=== PATIENT | male | born 1970 | race Two or more races ===

== ENCOUNTER 2018-10-10 10:21 | Emergency (ER) | payer SELFPAY ==
[~2018-10-10] VITALS: Ht 175.3 cm; Wt 53.5 kg
[2018-10-10] MEDS ORDERED: IV NORMAL SALINE 1000ML BAG 1,000 ML IV SCH (11:35)
--- NOTE | 2018-10-10 11:45 | PHYS DOC ---
Past Medical History Past Medical History: Cancer Past Surgical History: Other Additional Past Surgical Histo: GASTRIC CA Smoking: Cigarettes (The patient is a nonsmoker.) Alcohol Use: None Drug Use: None Adult General Chief Complaint Chief Complaint: ABDOMINAL PAIN HPI HPI Patient is a pleasant 48-year-old male, who presents to the emergency department for evaluation. He has a past history of gastric cancer, with the surgery for this about 10 years ago. He states he has dealt with chronic abdominal pain, and at some point became addicted to pain pills, for which she currently takes Buprenorphine. He states that although he has had chronic abdominal pain, over the past several days he has had a worsening of his abdominal pain, mostly in the upper abdomen and on the right side. He has not had any vomiting, or change in his bowel habits, which have been loose for years. He has not had any black or bloody stools, fevers, chills, chest pain, dizziness or lightheadedness. There are no alleviating or exacerbating factors to his symptoms. He does not want to take any further pain medication at this time, given his past history. Review of Systems Review of Systems Constitutional: Denies fever or chills. The patient admits to about a 5 pound weight loss over the past 2 months. [] Eyes: Denies change in visual acuity, redness, or eye pain [] HENT: Denies nasal congestion or sore throat [] Respiratory: Denies cough or shortness of breath [] Cardiovascular: The patient denies any shortness of breath, chest pain, p alpitations, or orthopnea[] GI: No additional information not addressed in HPI [] : Denies dysuria or hematuria [] Musculoskeletal: Denies back pain or joint pain [] Integument: Denies rash or skin lesions [] Neurologic: Denies headache, focal weakness or sensory changes [] Endocrine: Denies polyuria or polydipsia [] All other systems were reviewed and found to be within normal limits, except as documented in this note. Current Medications Current Medications Current Medications Medications (Trade) Dose Ordered Sig/Sheila Start Time Stop Time Status Last Admin Dose Admin Info (CONTRAST GIVEN -- Rx MONITORING) 1 each PRN DAILY PRN 10/10/18 12:00 10/12/18 11:59 Iohexol (Omnipaque 240 Mg/ml) 30 ml 1X ONCE 10/10/18 12:30 10/10/18 12:31 DC 10/10/18 12:53 30 ML Iohexol (Omnipaque 300 Mg/ml) 75 ml 1X ONCE 10/10/18 12:30 10/10/18 12:31 DC 10/10/18 12:53 75 ML Sodium Chloride 1,000 ml @ 1,000 mls/hr Q1H 10/10/18 11:35 10/10/18 12:34 DC 10/10/18 12:02 1,000 MLS/HR Allergies Allergies Allergies Coded Allergies Type Severity Reaction Last Updated Verified No Known Drug Allergies 10/10/18 No Physical Exam Physical Exam PHYSICAL EXAM: CONSTITUTIONAL: Well developed, well nourished HEAD: normocephalic, atraumatic EENT: PERRL, EOMI. Conjunctivae normal color, sclerae non-icteric; moist mucous membranes. NECK: Supple, non-tender; no meningismus. LUNGS: Lungs CTA, breathing even and unlabored. Normal air movement. HEART: Regular rate and rhythm, no murmur CHEST: No deformity; non-tender ABDOMEN: The abdomen is soft, bowel sounds are present, the abdomen is nondist ended, there is diffuse tenderness to palpation to the entire abdomen, most prominent in the upper abdomen, without focal tenderness, rebound or guarding, no palpable masses or bruits. EXTREM: Normal ROM; no deformity, no calf tenderness. Normal pulses palpable in all extremities. There is no pedal edema. SKIN: No rash; no diaphoresis NEURO: Alert; normal speech and cognition; CN's grossly intact; strength grossly intact without focal deficit. BACK: No CVA TTP. Current Patient Data Vital Signs Vital Signs Date Time Temp Pulse Resp B/P (MAP) Pulse Ox O2 Delivery O2 Flow Rate FiO2 10/10/18 10:21 98.7 78 12 133/82 (99) 98 Room Air 98.7 Lab Values Laboratory Tests Test 10/10/18 11:25 White Blood Count 5.8 x10^3/uL (4.0-11.0) Red Blood Count 4.19 x10^6/uL (4.30-5.70) L Hemoglobin 13.4 g/dL (13.0-17.5) Hematocrit 40.0 % (39.0-53.0) Mean Corpuscular Volume 95 fL (79-100) Mean Corpuscular Hemoglobin 32 pg (25-35) Mean Corpuscular Hemoglobin Concent 33 g/dL (31-37) Red Cell Distribution Width 17.6 % (11.5-14.5) H Platelet Count 307 x10^3/uL (140-400) Neutrophils (%) (Auto) 41 % (31-73) Lymphocytes (%) (Auto) 51 % (24-48) H Monocytes (%) (Auto) 7 % (0-9) Eosinophils (%) (Auto) 1 % (0-3) Basophils (%) (Auto) 1 % (0-3) Neutrophils # (Auto) 2.4 x10^3/uL (1.8-7.7) Lymphocytes # (Auto) 3.0 x10^3/uL (1.0-4.8) Monocytes # (Auto) 0.4 x10^3/uL (0.0-1.1) Eosinophils # (Auto) 0.1 x10^3/uL (0.0-0.7) Basophils # (Auto) 0.0 x10^3/uL (0.0-0.2) Sodium Level 142 mmol/L (136-145) Potassium Level 3.6 mmol/L (3.5-5.1) Chloride Level 103 mmol/L (98-107) Carbon Dioxide Level 30 mmol/L (21-32) Anion Gap 9 (6-14) Blood Urea Nitrogen 11 mg/dL (8-26) Creatinine 1.0 mg/dL (0.7-1.3) Estimated GFR (Cockcroft-Gault) 79.1 BUN/Creatinine Ratio 11 (6-20) Glucose Level 117 mg/dL (70-99) H Calcium Level 9.0 mg/dL (8.5-10.1) Total Bilirubin 0.4 mg/dL (0.2-1.0) Aspartate Amino Transferase (AST) 17 U/L (15-37) Alanine Aminotransferase (ALT) 11 U/L (16-63) L Alkaline Phosphatase 96 U/L (46-116) Total Protein 8.1 g/dL (6.4-8.2) Albumin 4.0 g/dL (3.4-5.0) Albumin/Globulin Ratio 1.0 (1.0-1.7) Lipase 68 U/L (73-393) L Laboratory Tests 10/10/18 11:25 Laboratory Tests 10/10/18 11:25 EKG EKG [Normal sinus rhythm with a normal rate, normal axis, normal intervals, there are no acute ischemic ST/T changes.] Radiology/Procedures Radiology/Procedures [PROCEDURE: CT ABD PELV W/ORAL&IV CONTRAST PQRS Compliance statement: One or more of the following individualized dose reduction techniques were utilized for this examination: 1. Automated exposure control. 2. Adjustment of the mA and/or kV according to patient size. 3. Use of iterative reconstruction technique. Indication:Upper abdominal pain. History of gastric cancer. TECHNIQUE: CT abdomen and pelvis with IV contrast with multiplanar reformats. COMPARISON: None FINDINGS: Heart is normal in size. No pericardial or pleural effusion. Clear lung bases. Status post partial left colectomy. No suspicious liver lesion. Status post splenectomy. Status post partial pancreatectomy. Adrenal glands demonstrate no nodularity. No nephrolithiasis or hydronephrosis. Status post gastrectomy. Status post cholecystectomy. No bowel obstruction. No free pelvic fluid or ascites. Normal appendix. The prostate and seminal vesicles show no large mass. Urinary bladder demonstrates no radiopaque stone is significant distended. No pneumoperitoneum. No suspicious bony lesion. IMPRESSION: Status post gastrectomy. No bowel obstruction. No acute findings.] Course & Med Decision Making Course & Med Decision Making Pertinent Labs and Imaging studies reviewed. (See chart for details) []1:15 PM: Patient remains stable. I discussed test results, the need for close follow-up, and return precautions. Dragon Disclaimer Dragon Disclaimer This electronic medical record was generated, in whole or in part, using a voice recognition dictation system. Departure Departure Impression: Primary Impression: Abdominal pain Disposition: HOME, SELF-CARE Condition: STABLE Referrals: LANCE SHOEMAKER MD Patient Instructions: Abdominal Pain Scripts Omeprazole (OMEPRAZOLE) 20 Mg Capsule. 20 MG PO DAILY for 30 Days, #30 CAP Prov: DANDY MUNIZ MD 10/10/18 DANDY MUNIZ MD Oct 10, 2018 11:45
[2018-10-10 11:55] LABS: BASO % 1 % (0-3); EOS # 0.1 x10^3/uL (0.0-0.7); EOS % 1 % (0-3); HEMOGLOBIN 13.4 g/dL (13.0-17.5); LYMPH % 51 % (24-48); MEAN CORPUSCULAR HEMOGLOBIN 32 pg (25-35); MEAN CORPUSCULAR HGB CONC 33 g/dL (31-37); MEAN CORPUSCULAR VOLUME 95 fL (79-100); MONO # 0.4 x10^3/uL (0.0-1.1); MONO % 7 % (0-9); NEUT # 2.4 x10^3/uL (1.8-7.7); NEUT % 41 % (31-73); PLATELET COUNT 307 x10^3/uL (140-400); RED BLOOD COUNT 4.19 x10^6/uL (4.30-5.70); RED CELL DISTRIBUTION WIDTH 17.6 % (11.5-14.5); WHITE BLOOD COUNT 5.8 x10^3/uL (4.0-11.0)
[2018-10-10] MEDS ORDERED: CONTRAST GIVEN. MC PRN (12:00)
[2018-10-10 12:25] LABS: GFR 79.1; POTASSIUM 3.6 mmol/L (3.5-5.1)
[2018-10-10 12:27] LABS: TOTAL BILIRUBIN 0.4 mg/dL (0.2-1.0); TOTAL PROTEIN 8.1 g/dL (6.4-8.2)
[2018-10-10] MEDS ORDERED: IOHEXOL 300 MG/ML 100ML VIAL. IV ONE (12:30)
[2018-10-10] MEDS ORDERED: IOHEXOL 240 MG/ML 50ML VIAL. PO ONE (12:30)
[2018-10-10 13:00] LABS: BILIRUBIN,URINE NEGATIVE (NEG); CLARITY,URINE CLEAR; COLOR,URINE YELLOW; NITRITE,URINE NEGATIVE (NEG); PROTEIN,URINE NEGATIVE (NEG-TRACE); UROBILINOGEN,URINE 0.2 mg/dL (0.2 mg/dL)
--- NOTE | 2018-10-10 13:06 | RAD ---
PQRS Compliance statement: One or more of the following individualized dose reduction techniques were utilized for this examination: 1. Automated exposure control. 2. Adjustment of the mA and/or kV according to patient size. 3. Use of iterative reconstruction technique. Indication:Upper abdominal pain. History of gastric cancer. TECHNIQUE: CT abdomen and pelvis with IV contrast with multiplanar reformats. COMPARISON: None FINDINGS: Heart is normal in size. No pericardial or pleural effusion. Clear lung bases. Status post partial left colectomy. No suspicious liver lesion. Status post splenectomy. Status post partial pancreatectomy. Adrenal glands demonstrate no nodularity. No nephrolithiasis or hydronephrosis. Status post gastrectomy. Status post cholecystectomy. No bowel obstruction. No free pelvic fluid or ascites. Normal appendix. The prostate and seminal vesicles show no large mass. Urinary bladder demonstrates no radiopaque stone is significant distended. No pneumoperitoneum. No suspicious bony lesion. IMPRESSION: Status post gastrectomy. No bowel obstruction. No acute findings. Electronically signed by: Fransisco Pierce DO (10/10/2018 1:04 PM) [facility]
[2018-10-10 13:17] LABS: SQUAMOUS EPITHELIAL CELL,UR FEW /LPF
[2018-10-10 13:18] LABS: BACTERIA,URINE 0 /HPF (0-FEW); RBC,URINE 0 /HPF (0-2); WBC,URINE OCC /HPF (0-4)
[2018-10-10] MEDS ORDERED: OMEP20CA10 PO (13:19)
[2018-10-10 13:27] VITALS: BP 102/64
--- NOTE | 2018-10-10 13:35 | EKG ---
[facility] [address] [place] [address] Test Date: 2018-10-10 Test Time: 11:43:54 Pat Name: PETRONA MELVIN Department: Room: Gender: M [employer]: : 1970 Requested By: DANDY MUNIZ Order Number: [id number] Reading MD: David Javed MD Measurements Intervals [place] Rate: 74 P: 66 NM: 140 QRS: 62 QRSD: 80 T: 46 QT: 376 QTc: 422 Interpretive Statements SINUS RHYTHM Electronically Signed On 10-12-2018 15:40:05 CDT by David Javed MD
== END 2018-10-10 14:00 | disposition home or self-care (01) ==
LOC: ER 10:21
DX: R10.84 Generalized abdominal pain (principal); G89.29 Other chronic pain; Z90.3 Acquired absence of stomach [part of]
CPT/HCPCS: 36415; 74177; 80053; 81001; 83690; 85025; 93005; 99285; J7030; Q9966; Q9967; 96360